=== PATIENT | male | born 1975 | race Caucasian/White ===

== ENCOUNTER 2024-08-12 17:40 | Emergency (ER) | payer OTHER, SELFPAY ==
[2024-08-12 17:48] VITALS: BP 168/106
[2024-08-12 18:10] LABS: % Basophils 0.4 % (0-2); % Immature Granulocytes 0.1 % (0-0.5); % Lymphocytes 31.7 % (20.5-51.1); % Neutrophils 56.8 % (42.2-75.2); Absolute Eosinophils 0.2 10^3/uL (0-0.7); Absolute Monocytes 0.9 10^3/uL (0.1-0.6); Absolute Neutrophils 5.4 10^3/uL (1.4-6.5); Hematocrit 42.5 % (39.0-52.0); Hemoglobin 15.2 g/dL (13.0-18.0); Mean Corp Hgb Conc. 35.8 g/dL (33.0-37.0); Mean Corpuscular Hgb 29.7 pg (27.0-31.0); Mean Corpuscular Volume 83.2 fL (80.0-94.0); Mean Platelet Volume 9.1 fL (7.4-10.4); Nucleated Red Blood Cells % 0 % (-); Platelet Count 238 10^3/uL (130-400); Red Blood Cell Count 5.11 10^6/uL (4.70-6.10); Red Cell Dist. Width 12.5 % (11.5-14.5); White Blood Cell Count 9.6 10^3/uL (4.8-10.8)
[2024-08-12 18:23] LABS: ALT (SGPT) 42 U/L (0-50); Albumin 4.6 g/dl (3.5-5.0); Alkaline Phosphatase 52 U/L (38-126); Blood Urea Nitrogen 23 mg/dl (9-20); Calcium 9.6 mg/dl (8.4-10.2); Carbon Dioxide 22 mmol/L (22-30); Chloride 103 mmol/L (98-107); Glucose 129 mg/dl (70-99); Potassium 3.7 mmol/L (3.5-5.1); Sodium 136 mmol/L (135-145); Total Bilirubin 0.5 mg/dl (0.2-1.3); Total Protein 6.9 g/dl (6.3-8.2); eGFR > 60.00
[2024-08-12 18:34] LABS: Troponin I < 0.012 ng/ml
[2024-08-12 18:51] LABS: AST (SGOT) 30 U/L (17-59)
[2024-08-12 18:53] VITALS: BP 143/94
[2024-08-12 19:00] VITALS: BP 139/90
[2024-08-12 19:14] VITALS: BMI 36.2
[2024-08-12 19:44] LABS: D-Dimer < 0.27 ug/mlFEU (0.00-0.50)
[2024-08-12 20:00] VITALS: BP 127/89
[2024-08-12 21:00] VITALS: BP 135/83
[2024-08-12 21:23] LABS: Troponin I < 0.012 ng/ml
--- NOTE | 2024-08-12 21:30 | ED.GENMED ---
History of Present Illness
General
Chief Complaint: Chest Pain
Source: patient
Exam Limitations: none
Time Seen by Provider: 08/12/24 18:54
Nursing documentation reviewed up to this point in time: agreed with
History of Present Illness
History of Present Illness:
49-year-old male with no reported chronic medical issues presents to the emergency room for evaluation of chest pain. Patient reports onset of symptoms Tuesday and they have been intermittent since that time. He says that he thinks they might be
triggered when he is stressed. No clear relieving factors noted. He reports a sensation in his chest like a knot in his chest that radiates up to his throat. Usually last for only a few moments. He denies any associated nausea, vomiting,
palpitations. He denies any diaphoresis. No exertional component. He denies similar symptoms in the past. He denies any known cardiac history denies any family history of cardiac issues. He does admit he has been under increased stress recently.
Review of Systems
Review of Systems
All Other Systems: ROS reviewed and negative except as documented in HPI and ROS
Constitutional: Denies fever or chills
EENT: Denies sore throat
Respiratory: Denies cough or trouble breathing
Cardiac: Reports chest pain; Denies diaphoresis or palpitations
ABD/GI: Denies abdominal pain, nausea or vomiting
: Denies flank pain
Musculoskeletal: Denies neck pain or back pain
Neurological: Denies dizzy or headache
Phy Exam
Physical Exam
Physical Exam:
General: Awake, alert, oriented x3; no acute distress
Head: Normocephalic, atraumatic
Eyes: Conjunctiva normal, EOMI
Throat: Airway intact, handling secretions
Neck: Trachea midline, supple without meningismus
Lungs: Clear to auscultation bilaterally, no wheezing, rales, rhonchi
Heart: Regular rate and rhythm, no murmurs, gallops, or rubs
Abd: Soft, non distended, nontender
Neuro: Cranial nerves grossly intact, speech fluid
Skin: no rash
Extremities: No edema in extremities, equal pulses in all extremities
Scores
Heart Failure Risk
Heart Failure Risk Score: Not Applicable
Heart Score for Chest Pain Patients
STEMI patient?: No
History: Slightly or Non-Suspicious
ECG: Normal
Age: >45 - <65 years
Risk Factors: 1 or 2 Risk Factors
Troponin: </= Normal Limit
Heart Score for Chest Pain Patients: 2
Heart Score Risk: 2.5% MACE over next 6 weeks
Withdrawal Assessment of Alcohol
Withdrawal Assessment Completed?: Not applicable
Course
Orders/Labs/Results
Orders:
Orders
08/12/24 17:40
Electrocardiogram (*1) Urgent
Reason for Study: Chest Pain
EKG- Treatment ONCE
08/12/24 18:03
Comprehensive Metabolic Panel Urgent
08/12/24 18:04
Complete Blood Count/With Diff Urgent
Troponin I Urgent
08/12/24 18:58
CR Chest - 2 Views Urgent
Comment:
Reason For Exam: cp
08/12/24 19:21
D-Dimer Urgent
08/12/24 20:55
Troponin I Urgent
08/12/24 20:58
Electrocardiogram (*1) Urgent
Reason for Study: Other
Other Reason for Exam: with troponin
EKG- Treatment ONCE
Abnormal Lab Results
08/12/24 08/12/24
18:03 18:04
Absolute Monos (auto) 0.9 H 10^3/uL
(0.1-0.6)
BUN 23 H mg/dl
(9-20)
Glucose 129 H mg/dl
(70-99)
08/12/24 18:04
08/12/24 18:03
Vital Signs
Initial and Last Documented VS:
Initial Vital Signs
Temp Pulse Resp BP Pulse Ox
37.1 C 114 18 168/106 98
08/12/24 17:48 08/12/24 17:48 08/12/24 17:48 08/12/24 17:48 08/12/24 17:48
Last Documented Vital Signs
Temp Pulse Resp BP Pulse Ox
37.1 C 93 15 127/89 95
08/12/24 17:48 08/12/24 20:45 08/12/24 20:45 08/12/24 20:00 08/12/24 20:45
MDM/Problems Addressed
Differential Diagnosis Includes:
Angina, GERD, esophageal spasm, anxiety/panic; very unlikely to be acute PE, aortic dissection or other emergent pathology with brief mild and intermittent symptoms as described
MDM/Problems Addressed:
49-year-old male presents for evaluation of brief intermittent chest pains like a knot in his chest and throat triggered by stress. Hypertensive and tachycardic on arrival but vitals all normalized without intervention on my assessment. Physical
exam as above. His EKG shows sinus rhythm with no STEMI. No change on serial EKG. He had labs sent off including a CBC and a CMP which were unremarkable. Troponins were serially undetectable. D-dimer negative. Chest x-ray shows no acute
disease. Very low suspicion for emergent pathology at this point in time. Could be GERD or reflux versus anxiety�symptoms are very atypical for cardiac chest pain. I think at this point patient stable for discharge. Follow-up with his PCP as an
outpatient. Patient feels very comfortable with this plan. Reasonable to trial PPI. We spoke about return precautions and all questions answered.
*Radiology
Radiology exam reviewed: preliminary read by ED provider and radiology read reviewed
*Pulse Oximetry
Patient hypoxic: no
*EKG
Interpreted by ED Provider?: Yes
Heart Rate: 106
Rate: normal
Rhythm: sinus
[place]: normal axis
Interval: normal interval
QRS Pattern: normal QRS
Ischemia: no ischemia
*Critical Care Note
Total Time (30-74mins, 75-104mins- exclusive of procedures): Not Applicable
Data Reviewed
Source: patient and spouse
ED Attending Note
-
Portions of this chart may have been created with voice recognition software.� Occasional wrong word or��sound alike� substitutions may have occurred due to the inherent limitations of voice recognition software.
Discharge Plan
Departure
Patient Disposition: Home (Routine Discharge)
Date of Disposition: 08/12/24
Time of Disposition: 21:35
Patient with high blood pressure during this ER visit?: Yes
Discharge Problem:
Chest pain
Instructions: Chest Pain PCP Follow Up
Activity Restrictions/Additional Instructions:
Thank you for visiting the Emergency Department at [facility].
1. Please schedule a follow up appointment as directed. Call first thing tomorrow morning to make an appointment.
2. If indicated, please take your medications as instructed and indicated on discharge paperwork.
3. If any of your symptoms do not improve, or persist, or become more severe within 6-12 hours, please return to the emergency department for further care.
4. Please return to the emergency department if you develop a headache, neck pain/stiffness, fever greater than 100.4F, chest pain, shortness of breath, persistent nausea, vomiting, slurred speech, difficulty walking, numbness/tingling, weakness,
signs of infection or any other symptoms that are worrisome to you.
Please call [phone] if you have any questions.
Interventions
Interventions:
*Risk Screen - Suicide Last Done: 08/12/24 17:48
*General Assessment Last Done: 08/12/24 17:48
*Neglect/Abuse Screening Last Done: 08/12/24 19:03
ED- Fall Risk Assessment Last Done: 08/12/24 20:50
*ED COVID-19 Vaccine History Last Done: 08/12/24 17:48
ED- Cardiac Assessment Last Done: 08/12/24 20:50
Discharge Date and Time
Print Language: TUNISIAN
== END 2024-08-12 22:07 | disposition home or self-care (01) ==
LOC: EMR 17:40
PROVIDERS: Emergency Medicine; EMERGENCY PHYSICIAN Emergency Medicine
DX: R07.89 Other chest pain (principal)
CPT/HCPCS: 99283; 71046; 80053; 84484; 85025; 85379; 93005